=== PATIENT | male | born 1945 | race Caucasian/White ===

== ENCOUNTER 2024-04-28 06:58 | Day surgery (SDC) | payer MEDICARE, OTHER ==
[~2024-04-28] VITALS: Ht 157.5 cm; Wt 67.6 kg
[2024-04-28] MEDS ORDERED: DiphenhydrAMINE HCL 50 MG/ML VIAL ONE (08:27)
[2024-04-28] MEDS ORDERED: SODIUM TETRADECYL SULFATE 3% 60 MG/2 ML VIAL IVP ONE (08:27)
[2024-04-28] MEDS ORDERED: EPINEPHrine 1:10,000 [1 MG/10 ML] SYRINGE ONE (08:27)
[2024-04-28] MEDS ORDERED: NALOXONE HCL 0.4 MG/ML VIAL ONE (08:27)
[2024-04-28] MEDS ORDERED: ATROPINE SULFATE 0.1 MG/ML 10 ML SYRINGE IVP ONE (08:27)
[2024-04-28] MEDS ORDERED: FLUMAZENIL 0.1 MG/ML 5 ML VIAL IVP ONE (08:27)
[2024-04-28] MEDS ORDERED: MIDAZOLAM HCL 2 MG/2 ML VIAL ONE (08:28)
[2024-04-28] MEDS ORDERED: FentaNYL CITRATE PF 100 MCG/2 ML VIAL ONE (08:28)
[2024-04-28] MEDS: SODIUM CHLORIDE 0.9% 1,000 ML IV ONE (08:47)
[2024-04-28 10:00] VITALS: PULSE 77; RESP 14; O2SAT 100
[2024-04-28] MEDS ORDERED: MethylPREDNISolone SOD SUCC 125 MG/2 ML VIAL ONE (10:21)
[2024-04-28] MEDS: MethylPREDNISolone SOD SUCC 125 MG/2 ML VIAL IVP ONE (10:23)
[2024-04-28] MEDS ORDERED: LIDOCAINE 2% 11 ML JELLY ONE (16:49)
[2024-04-28] MEDS ORDERED: LIDOCAINE 4% 50 ML SOLUTION ONE (16:49)
[2024-04-28] MEDS ORDERED: ALBUTEROL SULFATE 2.5 MG/0.5 ML NEB SOLUTION NEB ONE (16:49)
[2024-04-28] MEDS ORDERED: BENZOCAINE 20% 50 MCG/SPRAY 57 GM ONE (16:49)
== END 2024-04-28 13:42 | disposition home or self-care (01) ==
LOC: SURGERY 06:58
PROVIDERS: ATTEND Internal Medicine Critical Care Medicine
DX: R05.3 Chronic cough (principal); J38.4 Edema of larynx; B37.0 Candidal stomatitis; J81.1 Chronic pulmonary edema; R49.0 Dysphonia; R04.2 Hemoptysis; Z98.818 Other dental procedure status; J45.909 Unspecified asthma, uncomplicated
CPT/HCPCS: 31623; 99156; 99157; 87206; 87101; 87220; 87070; 31624; 94640; 71045; 87015; J3010; J2250; J2919; J0171; J0461; J1200; J2310; J3490; J7613; Z7610